=== PATIENT | male | born 1990 | race Caucasian/White ===

== ENCOUNTER 2021-03-05 14:14 | Emergency (ER) | payer SELFPAY ==
[~2021-03-05] VITALS: Ht 177.8 cm; Wt 101.2 kg
[2021-03-05 14:24] VITALS: BP 131/88
--- NOTE | 2021-03-05 15:30 | NUR ---
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
== END 2021-03-05 16:16 | disposition home or self-care (01) ==
LOC: ED 15:45
DX: K11.21 Acute sialoadenitis (principal)
CPT/HCPCS: 99283